=== PATIENT | female | born 1995 | race African-American/Black ===

== ENCOUNTER 2017-01-03 17:56 | Emergency (ER) | payer SELFPAY ==
[~2017-01-03] VITALS: Ht 175.3 cm; Wt 108.9 kg
[2017-01-03 18:05] VITALS: BP 134/90
== END 2017-01-03 18:20 | disposition left against medical advice (07) ==
LOC: ER 17:58
DX: S00.81XA Abrasion of other part of head, initial encounter (principal); Z53.21 Procedure and treatment not carried out due to patient leaving prior to being seen by health care provider; V43.92XA Unspecified car occupant injured in collision with other type car in traffic accident, initial encounter; Y93.89 Activity, other specified; Y92.89 Other specified places as the place of occurrence of the external cause; Y99.8 Other external cause status